=== PATIENT | female | born 1975 | race Caucasian/White ===

== ENCOUNTER → 2017-05-06 | Outpatient (CLI) | payer OTHER ==
[~2017-05-06] MED LIST: CELE400C PO; DOCU-131 PO; GABA600T2 PO; HYDR-882 PO; IBUP-1222 PO; IBUP-1223 PO; LEVO88TA2 PO; MEDR2.5T PO; MELA3TAB2 PO; MULT1CAP19 PO; OXYC-302 PO
== END | disposition home or self-care (01) ==
LOC: CFH 15:45
PROVIDERS: ATTEND Family Medicine
DX: Z12.31 Encounter for screening mammogram for malignant neoplasm of breast (principal)
CPT/HCPCS: 77063; G0202

== ENCOUNTER → 2018-10-26 | Outpatient (CLI) | payer OTHER ==
[~2018-10-26] MED LIST changes: -GABA600T2 PO; +GABA600T7 PO; +HYDR-3653 PO; -HYDR-882 PO
== END | disposition home or self-care (01) ==
LOC: CFH 16:08
PROVIDERS: ATTEND Family Medicine
DX: Z12.31 Encounter for screening mammogram for malignant neoplasm of breast (principal)
CPT/HCPCS: 77067

== ENCOUNTER 2020-10-19 07:56 | Outpatient (CLI) | payer OTHER ==
[~2020-10-19 07:56] MED LIST changes: -MELA3TAB2 PO; +MELA3TAB31 PO; -OXYC-302 PO; +OXYC1TAB14 PO
== END 2020-10-19 23:59 | disposition home or self-care (01) ==
LOC: CFH 07:56
PROVIDERS: ATTEND Obstetrics & Gynecology
DX: Z12.31 Encounter for screening mammogram for malignant neoplasm of breast (principal)
CPT/HCPCS: 77067